=== PATIENT | male | born 1995 | race American Indian/Alaskan Native ===

== ENCOUNTER 2018-12-19 10:44 | Outpatient (CLI) | payer OTHER ==
[2018-12-19 11:33] LABS: Hemoglobin 15.9 g/dL (14.0-18.0); Mean Corpuscular HGB CONC 32.9 g/dL (32.0-36.0); Mean Corpuscular Hemoglobin 28.2 pg (27.0-31.0); Mean Corpuscular Volume 85.8 fL (78.0-98.0); Mean Platelet Volume 7.1 fL (7.4-10.4); Platelet Count 231 thou/uL (130-400); RBC Distribution Width 11.2 % (11.5-14.5); Red Blood Cell (RBC) Count 5.63 mill/uL (4.70-6.10); White Blood Cell (WBC) Count 5.2 thou/uL (4.8-10.8)
[2018-12-19 11:54] LABS: Anion Gap 11 mmol/L (10-20); BUN (Urea Nitrogen) 18 mg/dL (8.9-20.6); Calc. Creatinine Clearance 0 mL/min (70-130); Calcium 10.2 mg/dL (7.8-10.44); Carbon Dioxide 27 mmol/L (22-29); Chloride 104 mmol/L (98-107); Estimated GFR-MDRD Greater than 90; Glucose 72 mg/dL (70-105); Potassium 4.2 mmol/L (3.5-5.1); Sodium 138 mmol/L (136-145)
== END 2018-12-19 10:45 | disposition home or self-care (01) ==
LOC: LABBT 10:44
PROVIDERS: ATTEND Orthopaedic Surgery
DX: Z01.812 Encounter for preprocedural laboratory examination (principal); S52.572A Other intraarticular fracture of lower end of left radius, initial encounter for closed fracture
CPT/HCPCS: 80048; 85027

== ENCOUNTER 2018-12-20 09:21 | Day surgery (SDC) | payer OTHER ==
[2018-12-19 11:01] VITALS: BMI 22.0
[2018-12-20] MEDS ORDERED: Fentanyl 100 MCG/2 ML VIAL ONE (10:33)
[2018-12-20] MEDS ORDERED: Midazolam HCl 2 mg/2 ml Vial ONE (10:33)
[2018-12-20] MEDS ORDERED: Dexamethasone 20 MG/5 ML VIAL ONE ×2 (12:35→13:47)
[2018-12-20] MEDS ORDERED: Ondansetron PF 4 MG/2 ML Vial ONE ×2 (12:35→13:47)
[2018-12-20] MEDS ORDERED: Ketorolac Tromethamine 30 MG/ML VIAL ONE ×2 (12:35→13:47)
[2018-12-20] MEDS ORDERED: Bupivacaine HCl 0.5%/Epinephrine 1:200,000/PF 30 ml Vial ONE (13:00)
--- NOTE | 2018-12-20 13:21 | RAD ---
XR Forearm Rt 2 View STANDARD: 12/20/2018 12:00 AM CLINICAL INDICATION: History of fracture, ORIF, right forearm COMPARISON: None. FINDINGS: Plate and screw fixation traversing fracture site of distal radius Osseous detail limited by magnified intraoperative fluoroscopic imaging. IMPRESSION: 1. Intraoperative fracture fixation of distal radius.
[2018-12-20] MEDS ORDERED: PHENYLEPHRINE-NS 100 MCG/ML 10 ML SYRINGE ONE (13:47)
--- NOTE | 2018-12-20 20:40 | OP ---
DATE OF PROCEDURE: 12/20/2018 PREOPERATIVE DIAGNOSIS: Comminuted displaced intra-articular fracture of the left distal radius. POSTOPERATIVE DIAGNOSIS: Comminuted displaced intra-articular fracture of the left distal radius. PROCEDURE PERFORMED: Open reduction and internal fixation of the comminuted displaced intra-articular fracture, left distal radius. ANESTHESIA: General. DESCRIPTION OF PROCEDURE: The patient had a block performed on the left upper extremity. He was given preoperative IV antibiotics, taken to the operating room, placed in supine position, satisfactory general anesthesia was performed. The left upper extremity was sterilely prepped and draped in usual fashion. After exsanguination, tourniquet at the proximal left forearm was raised to 200 mmHg. A longitudinal incision was made on the volar aspect of the wrist over the flexor carpi radialis tendon area. The incision went from the flexor wrist crease for approximately 3-1/2 inches. Blunt and sharp dissection was made. Flexor carpi radialis tendon was identified and retracted ulnarly. Other soft tissue retracted radially. The muscle was periosteally elevated off the volar aspect of the distal radius. Fracture was manipulated. C-arm was used to verify good alignment of all the intra-articular fractures of the left distal radius and internal fixation was provided using a [employer] 3-hole distal volar radial plate. A 2.7 cortical screw was placed after the plate position was confirmed with the C-arm. A 2.7 cortical screw was initially used and then six 2.7 locking screws were used distally and two 2.7 locking screws were used in the shaft. The fractures were noted to be in good position and the screws were in good position. The wound was then copiously irrigated with antibiotic solution and closed using 2-0 Vicryl for the fat and subcutaneous tissues and skin was closed with 3-0 Rapide. Sterile dressing was applied. The patient was placed back in his wrist immobilizer. Tourniquet was released. The patient was awakened, extubated, and transferred to recovery room in stable condition. ESTIMATED BLOOD LOSS: None. COMPLICATIONS: None. TOURNIQUET TIME: 40 minutes. DISCHARGE MEDICATION: Tylenol No. 3 one every 4-6 hours as needed for pain #40 with one refill. FOLLOWUP: He will follow up with my office in one week. Job ID: [id number]
== END 2018-12-20 14:50 | disposition home or self-care (01) ==
LOC: SDC 09:21
PROVIDERS: ATTEND Orthopaedic Surgery
PROC: 0PSJ04Z Reposition Left Radius with Internal Fixation Device, Open Approach (ICD-10-PCS; principal; 2018-12-20)
DX: S52.572A Other intraarticular fracture of lower end of left radius, initial encounter for closed fracture (principal); I10 Essential (primary) hypertension
CPT/HCPCS: 76000; C1713; J0690; J1100; J1885; J2250; J2405; J3010